=== PATIENT | male | born 1985 | race Caucasian/White ===

== ENCOUNTER 2021-01-15 10:07 | Inpatient (IN) | payer OTHER ==
[~2021-01-15] VITALS: Ht 170.2 cm; Wt 84.4 kg
[2021-01-15] MEDS ORDERED: ACETAMINOPHEN 325MG TABLET PO STA (10:25)
[2021-01-15] MEDS ORDERED: AZITHROMYCIN 500 MG in DEXT 5% WATER 250 ML IV ONE (10:30)
[2021-01-15] MEDS ORDERED: CEFTRIAXONE 1 G PREMIX 50 ML IV ONE (10:30)
[2021-01-15 10:47] LABS: BASOPHILS % 0.2 % (0.0-2.0); HEMATOCRIT. 38.4 % (42.0-52.0); HEMOGLOBIN. 13.5 g/dL (14.0-18.0); LYMPHOCYTES % 8.3 % (20.0-50.0); MEAN CORPUSCULAR HEMOGLOBIN 30.6 pg (28.0-32.0); MEAN CORPUSCULAR VOLUME 87.1 fL (80.0-94.0); MEAN PLATELET VOLUME 7.5 fl (7.4-10.4); MONOCYTES % 4.5 % (2.0-8.0); PLATELET 523 x1000/uL (130-400); RED BLOOD CELL COUNT 4.41 mill/uL (4.7-6.1); RED CELL DISTRIBUTION WIDTH 13.4 % (11.6-14.6)
[2021-01-15 10:52] LABS: CHLORIDE 102 mEq/L (98-107)
[2021-01-15 11:00] LABS: CREATINE KINASE 174 IU/L (39-308)
[2021-01-15 11:02] LABS: D-DIMER 1.83 mg/L FEU (<0.50); PROTHROMBIN TIME 11.2 sec (9.6-11.0)
[2021-01-15 11:10] LABS: FIBRINOGEN > 900 mg/dL (200-400)
[2021-01-15 11:23] LABS: CLARITY URINE CLEAR (CLEAR); COLOR URINE YELLOW (YELLOW); KETONES URINE TRACE (NEGATIVE); LEUKOCYTE ESTERASE URINE NEGATIVE (NEGATIVE); NITRITE URINE NEGATIVE (NEGATIVE); OCCULT BLOOD URINE NEGATIVE (NEGATIVE); PH URINE 5.5 (4.5-8.0); PROTEIN URINE 1+ (NEGATIVE); SPECIFIC GRAVITY URINE 1.021 (1.005-1.030)
[2021-01-15 12:02] LABS: BG BASE EXCESS 2.7 mmol/L (-2.0-2.0); BG CARBOXYHEMOGLOBIN 0.8 % (0.5-1.5); BG DEOXYHEMOGLOBIN 3.5 % (0.0-5.0); BG FRACTION INSPIRED OXYGEN 100; BG HCO3 ACT 25.9 mmol/L (22.0-26.0); BG METHEMOGLOBIN 0.5 % (0.0-1.5); BG OXYGEN SATURATION 96.5 % (92.0-98.5); BG OXYHEMOGLOBIN 95.2 % (94.0-97.0); BG PCO2 35.3 mmHg (35.0-45.0); BG PH 7.483 (7.350-7.450); BG PO2 86.9 mmHg (75.0-100.0); BG SAMPLE SITE RIGHT RADIAL; BG TOTAL HEMOGLOBIN 13.8 g/dL (12.0-18.0); BG VENT MODE MASK - NRB
[2021-01-15] MEDS ORDERED: DEXAMETHASONE 4MG TABLET PO SCH (16:45)
[2021-01-15 20:25] VITALS: BP 121/84
[2021-01-15] MEDS ORDERED: CEFTRIAXONE 1 G PREMIX 50 ML IV SCH (21:30)
[2021-01-15] MEDS ORDERED: ACETAMINOPHEN 325MG TABLET PO PRN (21:30)
[2021-01-15] MEDS ORDERED: HYDROCODONE/ACETAMINOPHEN 5/325MG TABLET PO PRN (21:30)
[2021-01-15 22:14] VITALS: BP 121/84
[2021-01-16] VITALS: BP 124/77
[2021-01-16 04:00] VITALS: BP 116/70
[2021-01-16] MEDS: CEFTRIAXONE 1,000 MG in DEXTROSE 5% WATER 50 ML IV SCH (07:01)
[2021-01-16 08:00] VITALS: BP 112/76
[2021-01-16] MEDS: AZITHROMYCIN 500 MG in DEXT 5% WATER 250 ML IV SCH (08:25)
[2021-01-16] MEDS: BENZONATATE 100MG CAPSULE PO SCH ×2 (08:26→17:00)
[2021-01-16] MEDS: FAMOTIDINE 20MG TABLET PO SCH ×2 (08:26→17:00)
[2021-01-16] MEDS ORDERED: ENOXAPARIN 40MG/0.4ML SYR SUBCUT SCH (09:00)
[2021-01-16 09:48] LABS: HEMATOCRIT. 39.2 % (42.0-52.0); HEMOGLOBIN. 13.2 g/dL (14.0-18.0); LYMPHOCYTES % 7.4 % (20.0-50.0); MEAN CORPUSCULAR HEMOGLOBIN 29.2 pg (28.0-32.0); MEAN CORPUSCULAR VOLUME 86.7 fL (80.0-94.0); MEAN PLATELET VOLUME 7.3 fl (7.4-10.4); MONOCYTES % 3.6 % (2.0-8.0); PLATELET 431 x1000/uL (130-400); RED BLOOD CELL COUNT 4.52 mill/uL (4.7-6.1); RED CELL DISTRIBUTION WIDTH 13.5 % (11.6-14.6)
[2021-01-16 09:58] LABS: CHLORIDE 103 mEq/L (98-107)
[2021-01-16 12:00] VITALS: BP 105/67
[2021-01-16 16:00] VITALS: BP 110/66
[2021-01-16] MEDS: DEXAMETHASONE 10 MG/ML VIAL IV SCH (17:00)
[2021-01-16 20:00] VITALS: BP 109/69
[2021-01-16] MEDS: ENOXAPARIN 30MG/0.3ML SYR SUBCUT SCH (21:00)
[2021-01-16] MEDS: ALBUTEROL 6.7GM HFA INHALER ORI SCH ×2 (21:01→23:57)
[2021-01-17] VITALS: BP 100/61
[2021-01-17] MEDS: ALBUTEROL 6.7GM HFA INHALER ORI SCH ×5 (03:46→20:23)
[2021-01-17 04:00] VITALS: BP 103/66
[2021-01-17 08:00] VITALS: BP 113/69
[2021-01-17] MEDS: AZITHROMYCIN 500 MG in DEXT 5% WATER 250 ML IV SCH (09:56)
[2021-01-17] MEDS: FAMOTIDINE 20MG TABLET PO SCH ×2 (09:56→17:09)
[2021-01-17] MEDS: BENZONATATE 100MG CAPSULE PO SCH ×2 (09:56→17:09)
[2021-01-17] MEDS: ENOXAPARIN 30MG/0.3ML SYR SUBCUT SCH ×2 (09:56→20:23)
[2021-01-17] MEDS ORDERED: GUAIFENESIN/CODEINE 100-10MG/5ML UDC PO PRN (10:45)
[2021-01-17 12:00] VITALS: BP 113/69
[2021-01-17] MEDS: GUAIFENESIN/CODEINE 200-20MG/10ML UDC PO PRN ×2 (12:43→20:31)
[2021-01-17] MEDS: CEFTRIAXONE 1,000 MG in DEXTROSE 5% WATER 50 ML IV SCH (12:44)
[2021-01-17 16:00] VITALS: BP 99/64
[2021-01-17] MEDS: DEXAMETHASONE 10 MG/ML VIAL IV SCH (17:09)
[2021-01-17 20:00] VITALS: BP 111/69
[2021-01-17] MEDS ORDERED: IVERMECTIN 3 MG TABLET PO NR (21:15)
[2021-01-18] VITALS: BP 112/69
[2021-01-18] MEDS: ALBUTEROL 6.7GM HFA INHALER ORI SCH ×6 (00:24→20:30)
[2021-01-18 04:00] VITALS: BP 101/61
[2021-01-18 08:00] VITALS: BP 103/54
[2021-01-18] MEDS: CEFTRIAXONE 1,000 MG in DEXTROSE 5% WATER 50 ML IV SCH (08:50)
[2021-01-18] MEDS: GUAIFENESIN/CODEINE 200-20MG/10ML UDC PO PRN ×2 (08:51→17:01)
[2021-01-18] MEDS: BENZONATATE 100MG CAPSULE PO SCH ×2 (08:51→17:02)
[2021-01-18] MEDS: FAMOTIDINE 20MG TABLET PO SCH ×2 (08:51→17:01)
[2021-01-18] MEDS: ENOXAPARIN 30MG/0.3ML SYR SUBCUT SCH (08:52)
[2021-01-18] MEDS: AZITHROMYCIN 500 MG in DEXT 5% WATER 250 ML IV SCH (09:04)
[2021-01-18 12:00] VITALS: BP 94/59
[2021-01-18 16:00] VITALS: BP 90/60
[2021-01-18] MEDS: DEXAMETHASONE 10 MG/ML VIAL IV SCH (17:02)
[2021-01-18 20:38] VITALS: BP 99/54
[2021-01-19 00:23] VITALS: BP 108/64
[2021-01-19] MEDS: GUAIFENESIN/CODEINE 200-20MG/10ML UDC PO PRN ×2 (00:52→12:24)
[2021-01-19] MEDS: ALBUTEROL 6.7GM HFA INHALER ORI SCH ×6 (00:52→20:26)
[2021-01-19 04:00] VITALS: BP 97/60
[2021-01-19] MEDS: CEFTRIAXONE 1,000 MG in DEXTROSE 5% WATER 50 ML IV SCH (07:46)
[2021-01-19 08:00] VITALS: BP 105/60
[2021-01-19] MEDS: AZITHROMYCIN 500 MG in DEXT 5% WATER 250 ML IV SCH (08:30)
[2021-01-19] MEDS: BENZONATATE 100MG CAPSULE PO SCH ×2 (08:30→17:09)
[2021-01-19] MEDS: ENOXAPARIN 40MG/0.4ML SYR SUBCUT SCH (08:30)
[2021-01-19] MEDS: FAMOTIDINE 20MG TABLET PO SCH ×2 (08:30→17:09)
[2021-01-19 12:00] VITALS: BP 101/57
[2021-01-19 16:00] VITALS: BP 109/64
[2021-01-19] MEDS: DEXAMETHASONE 10 MG/ML VIAL IV SCH (17:09)
[2021-01-19 20:37] VITALS: BP 96/57
[2021-01-19] MEDS ORDERED: IVERMECTIN 3 MG TABLET PO NR (21:15)
[2021-01-20 00:23] VITALS: BP 110/69
[2021-01-20 04:00] VITALS: BP 114/67
[2021-01-20] MEDS: ALBUTEROL 6.7GM HFA INHALER ORI SCH ×5 (05:51→20:02)
[2021-01-20] MEDS: CEFTRIAXONE 1,000 MG in DEXTROSE 5% WATER 50 ML IV SCH (07:30)
[2021-01-20 08:00] VITALS: BP 96/55
[2021-01-20] MEDS: ENOXAPARIN 40MG/0.4ML SYR SUBCUT SCH (08:26)
[2021-01-20] MEDS: FAMOTIDINE 20MG TABLET PO SCH ×2 (08:26→18:16)
[2021-01-20] MEDS: BENZONATATE 100MG CAPSULE PO SCH ×2 (08:26→18:16)
[2021-01-20] MEDS: GUAIFENESIN 600MG ER TABLET PO SCH ×2 (10:07→20:02)
[2021-01-20 12:00] VITALS: BP 103/50
[2021-01-20 16:00] VITALS: BP 96/48
[2021-01-20] MEDS: DEXAMETHASONE 10 MG/ML VIAL IV SCH (18:16)
[2021-01-20 20:00] VITALS: BP 100/46
[2021-01-21] VITALS: BP 110/55
[2021-01-21 04:00] VITALS: BP 97/49
[2021-01-21 08:00] VITALS: BP 91/58
[2021-01-21] MEDS: ALBUTEROL 6.7GM HFA INHALER ORI SCH ×6 (08:00→23:37)
[2021-01-21] MEDS: ENOXAPARIN 40MG/0.4ML SYR SUBCUT SCH (08:43)
[2021-01-21] MEDS: CEFTRIAXONE 1,000 MG in DEXTROSE 5% WATER 50 ML IV SCH (08:43)
[2021-01-21] MEDS: FAMOTIDINE 20MG TABLET PO SCH ×2 (08:44→17:38)
[2021-01-21] MEDS: BENZONATATE 100MG CAPSULE PO SCH ×2 (08:44→17:39)
[2021-01-21] MEDS: GUAIFENESIN 600MG ER TABLET PO SCH ×2 (08:44→20:07)
[2021-01-21 12:00] VITALS: BP 93/48
[2021-01-21 12:18] LABS: BG BASE EXCESS -1.7 mmol/L (-2.0-2.0); BG CARBOXYHEMOGLOBIN 0.3 % (0.5-1.5); BG DEOXYHEMOGLOBIN 2.5 % (0.0-5.0); BG FRACTION INSPIRED OXYGEN 36; BG HCO3 ACT 21.5 mmol/L (22.0-26.0); BG METHEMOGLOBIN 0.3 % (0.0-1.5); BG OXYGEN SATURATION 97.5 % (92.0-98.5); BG OXYHEMOGLOBIN 96.9 % (94.0-97.0); BG PCO2 32.2 mmHg (35.0-45.0); BG PH 7.442 (7.350-7.450); BG PO2 98.1 mmHg (75.0-100.0); BG SAMPLE SITE RIGHT BRACHIAL; BG TOTAL HEMOGLOBIN 13.9 g/dL (12.0-18.0); BG VENT MODE NASAL CANNULA
[2021-01-21] MEDS: GUAIFENESIN/CODEINE 200-20MG/10ML UDC PO PRN (15:14)
[2021-01-21 16:00] VITALS: BP 102/56
[2021-01-21] MEDS: DEXAMETHASONE 10 MG/ML VIAL IV SCH (17:38)
[2021-01-21 19:23] LABS: BG BASE EXCESS -2.3 mmol/L (-2.0-2.0); BG CARBOXYHEMOGLOBIN 0.5 % (0.5-1.5); BG DEOXYHEMOGLOBIN 11.7 % (0.0-5.0); BG FRACTION INSPIRED OXYGEN 21; BG HCO3 ACT 21.3 mmol/L (22.0-26.0); BG METHEMOGLOBIN 0.4 % (0.0-1.5); BG OXYGEN SATURATION 88.2 % (92.0-98.5); BG OXYHEMOGLOBIN 87.4 % (94.0-97.0); BG PCO2 33.5 mmHg (35.0-45.0); BG PH 7.421 (7.350-7.450); BG PO2 54.1 mmHg (75.0-100.0); BG TOTAL HEMOGLOBIN 15.1 g/dL (12.0-18.0); BG VENT MODE ROOM AIR
[2021-01-21 20:00] VITALS: BP 105/69
[2021-01-22] VITALS: BP 100/68
[2021-01-22 04:00] VITALS: BP 99/64
[2021-01-22] MEDS: ALBUTEROL 6.7GM HFA INHALER ORI SCH ×6 (04:35→23:36)
[2021-01-22 08:00] VITALS: BP 104/64
[2021-01-22] MEDS: ENOXAPARIN 40MG/0.4ML SYR SUBCUT SCH (08:04)
[2021-01-22] MEDS: BENZONATATE 100MG CAPSULE PO SCH ×2 (08:04→16:07)
[2021-01-22] MEDS: GUAIFENESIN 600MG ER TABLET PO SCH ×2 (08:05→20:05)
[2021-01-22] MEDS: FAMOTIDINE 20MG TABLET PO SCH ×2 (08:05→16:07)
[2021-01-22] MEDS: GUAIFENESIN/CODEINE 200-20MG/10ML UDC PO PRN ×2 (11:54→23:36)
[2021-01-22 12:00] VITALS: BP 110/60
[2021-01-22 16:00] VITALS: BP 105/50
[2021-01-22] MEDS: DEXAMETHASONE 10 MG/ML VIAL IV SCH (17:07)
[2021-01-22 20:00] VITALS: BP 104/59
[2021-01-23] VITALS (8 sets, daily range): BP systolic 94–111; BP diastolic 36–82
[2021-01-23] MEDS: ALBUTEROL 6.7GM HFA INHALER ORI SCH ×5 (03:56→20:09)
[2021-01-23] MEDS: BENZONATATE 100MG CAPSULE PO SCH ×2 (08:09→16:15)
[2021-01-23] MEDS: FAMOTIDINE 20MG TABLET PO SCH ×2 (08:09→16:15)
[2021-01-23] MEDS: GUAIFENESIN 600MG ER TABLET PO SCH ×2 (08:09→20:09)
[2021-01-23] MEDS: ENOXAPARIN 40MG/0.4ML SYR SUBCUT SCH (08:09)
[2021-01-23] MEDS: GUAIFENESIN/CODEINE 200-20MG/10ML UDC PO PRN (14:50)
[2021-01-23] MEDS: DEXAMETHASONE 10 MG/ML VIAL IV SCH (17:04)
[2021-01-24 00:21] VITALS: BP 92/47
[2021-01-24 04:00] VITALS: BP 101/58
[2021-01-24] MEDS: ALBUTEROL 6.7GM HFA INHALER ORI SCH ×4 (05:17→11:58)
[2021-01-24 08:00] VITALS: BP 100/68
[2021-01-24] MEDS: BENZONATATE 100MG CAPSULE PO SCH (08:33)
[2021-01-24] MEDS: GUAIFENESIN 600MG ER TABLET PO SCH (08:33)
[2021-01-24] MEDS: FAMOTIDINE 20MG TABLET PO SCH (08:33)
[2021-01-24] MEDS: ENOXAPARIN 40MG/0.4ML SYR SUBCUT SCH (08:34)
[2021-01-24 11:46] VITALS: BP 99/68
[2021-01-24] MEDS: GUAIFENESIN/CODEINE 200-20MG/10ML UDC PO PRN (12:03)
[2021-01-24] MEDS ORDERED: TUSSL MT (13:02)
[2021-01-24 13:14] VITALS: BP 99/68
== END 2021-01-24 16:25 | disposition home or self-care (01) | DRG 871 ==
LOC: ER 10:30 → 7WST 13:20 → ENRESERV 18:56
PROVIDERS: ADMIT Internal Medicine; ATTEND Internal Medicine
DX: A41.89 Other specified sepsis (principal); U07.1 COVID-19; J12.82 Pneumonia due to coronavirus disease 2019; J96.01 Acute respiratory failure with hypoxia; E44.0 Moderate protein-calorie malnutrition; E87.1 Hypo-osmolality and hyponatremia; E87.2 Acidosis; J44.0 Chronic obstructive pulmonary disease with (acute) lower respiratory infection; E66.9 Obesity, unspecified; B97.89 Other viral agents as the cause of diseases classified elsewhere; R65.20 Severe sepsis without septic shock; R74.01 Elevation of levels of liver transaminase levels; Z88.8 Allergy status to other drugs, medicaments and biological substances; Z68.29 Body mass index [BMI] 29.0-29.9, adult
CPT/HCPCS: 36415; 36600; 71045; 80048; 80053; 81003; 82375; 82550; 82728; 82805; 83605; 83615; 84145; 84484; 85025; 85379; 85384; 86140; 87426; 93005; 99291; J0456; J0696; J1100; J1650; J7040; J7060; J8540; U0003; U0005